=== PATIENT | female | born 1945 | race Two or more races ===

== ENCOUNTER 2018-08-02 07:02 | Day surgery (SDC) | payer OTHER, BC ==
[2018-08-02 09:12] VITALS: TEMP 98.5
[2018-08-02 11:54] VITALS: BP 112/64; PULSE 66
== END 2018-08-02 10:05 | disposition home or self-care (01) ==
LOC: JASU-ENDO 07:02
PROVIDERS: ATTEND Internal Medicine Gastroenterology
PROC: 0DJD8ZZ Inspection of Lower Intestinal Tract, Via Natural or Artificial Opening Endoscopic (ICD-10-PCS; principal; 2018-08-02 09:00)
DX: Z86.010 Personal history of colon polyps (principal); I10 Essential (primary) hypertension; E11.9 Type 2 diabetes mellitus without complications; E78.5 Hyperlipidemia, unspecified; E30.9 Disorder of puberty, unspecified; Z79.4 Long term (current) use of insulin
CPT/HCPCS: 82962

== ENCOUNTER 2018-11-02 08:17 | Emergency (ER) | payer OTHER, BC ==
[2018-11-02 08:22] VITALS: BP 145/83; PULSE 86; TEMP 97.7; BMI 37.8
--- NOTE | 2018-11-02 08:23 | PDOC ---
History of Present Illness - General Chief Complaint: Pain, Acute Stated Complaint: NECK PAIN Time Seen by Provider: 11/02/18 08:22 - History of Present Illness Initial Comments: 11/02/18 08:43 Chief complaint: Neck pain History of present illness: Patient awoke with left posterior and lateral neck pain and spasm 2 days ago, progressively worse. Aggravated by movement. No injury. Review of systems: Denies pain or weakness in the upper extremities, denies numbness or tingling in the arms or hands. Denies visual or focal neurologic symptoms except for radicular symptoms in the right leg, thought to be due to herniated disc. She is under the care of Dr. Santacruz for this condition. Denies chest pain, shortness of breath, abdominal pain, nausea, vomiting, diarrhea, hematemesis, melena, bloody stool, urinary tract symptoms, vaginal bleeding or discharge. Past medical history: Insulin-dependent diabetes, high blood pressure, hypothyroidism, dyspepsia, elevated cholesterol and triglycerides. On multiple medications as noted. Social history: No tobacco alcohol or nonprescription drugs. Stable home and family. Active without significant disability. She does exert herself periodically taking care of her grandchildren Family history: Reviewed and significant for diabetes, but no early coronary artery disease. Physical exam: Alert and oriented moderately obese moderate distress due to neck pain, primarily left-sided, and worse with rotation of the neck Afebrile, vital signs normal Head atraumatic. PERRLA, fundi benign, ENT clear There is considerable spasm of the sternomastoid muscle on the left, with a tilt of the head to the right. There is pain with rotation, and less so with flexion and extension. There is no point tenderness or deformity of the vertebral bodies of the cervical spine. There is no sign of inflammation. Neurological C2 to 12 intact. Strength full and symmetric. No focal sensory or motor deficits are demonstrable upper or lower extremities. Although the patient does describe intermittent radicular symptoms in the right leg as noted above. There is some aggravation of the neck pain with full abduction of the left arm. Chest clear. No rib cage or chest wall deformity or tenderness CV S1 and S2 regular without murmur rub or gallop pulses full and symmetric no JVD or edema no bruits Abdomen benign Gait stable and unimpaired. Extremities: No posterior calf swelling or tenderness. Homans negative. No CCE Impression: Torticollis, right neck, no sign of cervical radiculopathy Plan: Symptomatic treatment, ER observation, further evaluation depending on response to treatment. Past History - Past Medical History Allergies/Adverse Reactions: Allergies Allergy/AdvReac Type Severity Reaction Status Date / Time Penicillins Allergy Mild Hives Verified 11/02/18 08:23 fish derived Allergy Hives Verified 11/02/18 08:23 Home Medications: Ambulatory Orders Aspirin [ASA -] 81 mg PO DAILY #0 tab.chew 08/27/12 Atorvastatin Ca [Lipitor] 40 mg PO HS #0 tablet 08/27/12 Levothyroxine [Synthroid -] 25 mcg PO DAILY@0700 #0 tablet 08/27/12 Potassium Chloride [Klor-Con] 20 meq PO DAILY #0 packet 08/27/12 Valsartan/Hydrochlorothiazide [Diovan Hct 160-25 mg Tablet] 1 combo PO DAILY #0 tablet 08/27/12 metFORMIN HCL [Glucophage -] 500 mg PO BIDAC #0 tablet 08/27/12 Bone Meal/Ergocalciferol (D2) [Bone Meal-Vitamin D Tablet] 1 tab PO DAILY Dapagliflozin Propanediol [Farxiga] 10 mg PO DAILY 08/02/18 Exenatide Microspheres [Bydureon] 2 mg SQ Q7D 08/02/18 Fenofibrate 145 mg PO DAILY 08/02/18 Insulin Aspart [Novolog] 100 unit SQ DAILY 08/02/18 Metoprolol Succinate [Toprol XL -] 200 mg PO DAILY 08/02/18 Nifedipine [Nifedipine ER] 90 mg PO DAILY 08/02/18 Omeprazole Magnesium [Prilosec Otc] 20 mg PO DAILY 08/02/18 Pioglitazone HCl/Metformin HCl [Actoplus Met 15 mg-500 mg Tab] 15 mg PO DAILY Triamterene/Hydrochlorothiazid [Triamterene-Hctz 37.5-25 mg Cp] 25 mg PO DAILY 08/02/18 Cyclobenzaprine HCl [Flexeril] 10 mg PO TID PRN #10 tablet 11/02/18 COPD: No Diabetes: Yes HTN: Yes Hypercholesterolemia: Yes Kidney Stones: Yes Thyroid Disease: Yes - Surgical History Abdominal Surgery: Yes Cholecystectomy: Yes Neurologic Surgery: Yes (BACK DISC) Orthopedic Surgery: Yes (ARTHROSCOPY) - Suicide/Smoking/Psychosocial Hx Smoking Status: No Smoking History: Never smoked Number of Cigarettes Smoked Daily: 0 Hx Alcohol Use: No Drug/Substance Use Hx: No Substance Use Type: None Trauma Specific PMHX - Complaint Specific PMHX Arthritis: No Back Injury: Yes Neck Injury: No Hx Sacro Iliac Joint Dysfunction: No *Physical Exam - Vital Signs Last Vital Signs Temp Pulse Resp BP Pulse Ox 97.7 F 86 18 145/83 97 11/02/18 08:17 11/02/18 08:17 11/02/18 08:17 11/02/18 08:17 11/02/18 08:17 Moderate Sedation - Procedure Monitoring Vital Signs: Procedure Monitoring Vital Signs Temperature 97.7 F 11/02/18 08:17 Pulse Rate 86 11/02/18 08:17 Respiratory Rate 18 11/02/18 08:17 Blood Pressure 145/83 11/02/18 08:17 O2 Sat by Pulse Oximetry (%) 97 11/02/18 08:17 Medical Decision Making - Medical Decision Making 11/02/18 09:49 Pain and spasm are much improved. The cervical collar is reported as extremely helpful Continue muscle relaxant, rest, heat, and follow-up as necessary. Fully ambulatory at discharge with , much improved, to follow-up as directed *DC/Admit/Observation/Transfer Diagnosis at time of Disposition: Torticollis, acute - Discharge Dispostion Disposition: HOME Condition at time of disposition: Improved Decision to Admit order: No - Prescriptions Prescriptions: Cyclobenzaprine HCl [Flexeril] 10 mg PO TID PRN #10 tablet PRN Reason: pain/spasm neck - Referrals Referrals: Zoya Mccabe [Primary Care Provider] - 3 days - Patient Instructions Printed Discharge Instructions: DI for Torticollis Additional Instructions: Rest, heat, medication as directed. See primary physician for follow-up. Return to ER if symptoms worsen. - Post Discharge Activity
[2018-11-02] MEDS ORDERED: KETOROLAC TROMETHAMINE 60 MG/2 ML VIAL IM ONE (08:41)
[2018-11-02] MEDS ORDERED: LORazepam 1 MG TABLET PO ONE (08:41)
[2018-11-02] MEDS ORDERED: KETOROLAC TROMETHAMINE 60 MG/2 ML VIAL ONE (08:47)
[2018-11-02] MEDS ORDERED: LORazepam 0.5 MG TABLET ONE (08:49)
== END 2018-11-02 09:55 | disposition home or self-care (01) ==
LOC: FER 08:17
PROC: 3E0233Z Introduction of Anti-inflammatory into Muscle, Percutaneous Approach (ICD-10-PCS; principal; 2018-11-02)
DX: M43.6 Torticollis (principal); E11.9 Type 2 diabetes mellitus without complications; I10 Essential (primary) hypertension; E78.00 Pure hypercholesterolemia, unspecified; Z87.442 Personal history of urinary calculi; E03.9 Hypothyroidism, unspecified
CPT/HCPCS: 99282-25

== ENCOUNTER 2019-01-18 11:22 | Emergency (ER) | payer OTHER, BC ==
--- NOTE | 2019-01-18 11:38 | PDOC ---
History of Present Illness - General Chief Complaint: Pain, Acute Stated Complaint: NECK PAIN - History of Present Illness Initial Comments: 01/18/19 15:55 Chief complaint: Left neck spasm, swelling and redness left elbow History of present illness: Patient awoke this morning with pain and spasm of the muscles of the left side of the neck. She has had similar episodes in the past, which were uncomplicated right neck type spasms. She is also noted recent swelling pain and redness in her left elbow Review of systems: No injury or fall. No visual or focal neurologic symptoms or unsteadiness of gait. No trauma to the left elbow other than "resting her elbow on the table frequently".. She admits having thickened skin over the elbow for as long as she can remember. No fever/chills, chest pain, shortness of breath, abdominal pain, nausea, vomiting, diarrhea. Remainder systems reviewed and found to be negative Past medical history: History of "wry neck" as noted above. Insulin-dependent diabetes. High blood pressure. Elevated cholesterol. On medications as noted lumbar Social/family history reviewed and noncontributory Physical exam: Alert and oriented well-developed well-nourished no acute distress cheerful and cooperative Afebrile, vital signs stable Head atraumatic. PERRLA, fundi benign, ENT clear Neck exam reveals no point tenderness over the vertebral bodies. There is tenderness and spasm of the left sternomastoid muscle with tilting of the head to the right side. No bruits masses or nodes Chest clear. No rib cage or chest wall deformity or tenderness CV regular without murmur rub or gallop Abdomen benign Neurological C2 to 12 intact. No focal sensory or motor deficits. Gait stable and unimpaired Extremities: There is erythema, warmth, and mild tenderness over the olecranon involving the upper arm and forearm, surrounding the olecranon process. There is no deformity or limited range of motion. There is a 1 cm patch of hypertrophic, scaly epidermis over the olecranon process. No lymphangitic streaking and no tender axillary nodes Impression: Olecranon bursitis, septic, without appreciable effusion, but with early cellulitis of the surrounding tissues area probably with port of entry being a psoriatic type plaque over the elbow. Wry neck/torticollis as in the past. Plan: A soft cervical collar was applied. Patient was given a Toradol injection with considerable relief, and prescribed muscle relaxants. Her arm was placed in a sling and warm compresses were recommended. Antibiotics were prescribed. She tolerated cephalexin in the emergency room without any sign of reaction, although she is ALLERGIC to penicillin. She is instructed to follow-up in 24 hours to check response to therapy. Fully ambulatory and in no pain or other distress upon discharge with to follow-up as directed Past History - Past Medical History Allergies/Adverse Reactions: Allergies Allergy/AdvReac Type Severity Reaction Status Date / Time Penicillins Allergy Mild Hives Verified 01/18/19 11:36 fish derived Allergy Hives Verified 01/18/19 11:36 Home Medications: Ambulatory Orders Aspirin [ASA -] 81 mg PO DAILY #0 tab.chew 08/27/12 Atorvastatin Ca [Lipitor] 40 mg PO HS #0 tablet 08/27/12 Levothyroxine [Synthroid -] 25 mcg PO DAILY@0700 #0 tablet 08/27/12 Potassium Chloride [Klor-Con] 20 meq PO DAILY #0 packet 08/27/12 Valsartan/Hydrochlorothiazide [Diovan Hct 160-25 mg Tablet] 1 combo PO DAILY #0 tablet 08/27/12 metFORMIN HCL [Glucophage -] 500 mg PO BIDAC #0 tablet 08/27/12 Bone Meal/Ergocalciferol (D2) [Bone Meal-Vitamin D Tablet] 1 tab PO DAILY Dapagliflozin Propanediol [Farxiga] 10 mg PO DAILY 08/02/18 Exenatide Microspheres [Bydureon] 2 mg SQ Q7D 08/02/18 Fenofibrate 145 mg PO DAILY 08/02/18 Insulin Aspart [Novolog] 100 unit SQ DAILY 08/02/18 Metoprolol Succinate [Toprol XL -] 200 mg PO DAILY 08/02/18 Nifedipine [Nifedipine ER] 90 mg PO DAILY 08/02/18 Omeprazole Magnesium [Prilosec Otc] 20 mg PO DAILY 08/02/18 Pioglitazone HCl/Metformin HCl [Actoplus Met 15 mg-500 mg Tab] 15 mg PO DAILY Triamterene/Hydrochlorothiazid [Triamterene-Hctz 37.5-25 mg Cp] 25 mg PO DAILY 08/02/18 Cyclobenzaprine HCl [Flexeril -] 10 mg PO TID PRN #10 tablet 11/02/18 Cephalexin Monohydrate [Keflex] 500 mg PO Q6H #30 capsule 01/18/19 Cyclobenzaprine HCl [Flexeril] 10 mg PO TID #14 tablet 01/18/19 COPD: No Diabetes: Yes HTN: Yes Hypercholesterolemia: Yes Kidney Stones: Yes Thyroid Disease: Yes - Surgical History Abdominal Surgery: Yes Cholecystectomy: Yes Neurologic Surgery: Yes (BACK DISC) Orthopedic Surgery: Yes (ARTHROSCOPY) - Suicide/Smoking/Psychosocial Hx Smoking Status: No Smoking History: Never smoked Number of Cigarettes Smoked Daily: 0 Hx Alcohol Use: No Drug/Substance Use Hx: No Substance Use Type: None Trauma Specific PMHX - Complaint Specific PMHX Arthritis: No Back Injury: Yes Neck Injury: No Hx Sacro Iliac Joint Dysfunction: No *DC/Admit/Observation/Transfer Diagnosis at time of Disposition: Torticollis, acute, Olecranon bursitis of left elbow - Discharge Dispostion Disposition: HOME Condition at time of disposition: Stable Decision to Admit order: No - Prescriptions Prescriptions: Cephalexin Monohydrate [Keflex] 500 mg PO Q6H #30 capsule Cyclobenzaprine HCl [Flexeril] 10 mg PO TID #14 tablet - Referrals - Patient Instructions Printed Discharge Instructions: DI for Cellulitis -- Adult, DI for Torticollis Additional Instructions: Rest, warm compresses to neck and elbow, antibiotics as directed. Recheck 24 hours if redness and swelling of the elbow is worse. - Post Discharge Activity
[2019-01-18 11:53] VITALS: BP 133/64; PULSE 74; TEMP 97.3; BMI 38.4
[2019-01-18] MEDS ORDERED: CYCLOBENZAPRINE HCL 10 MG TABLET (FP) PO ONE (12:08)
[2019-01-18] MEDS ORDERED: KETOROLAC TROMETHAMINE 60 MG/2 ML VIAL IM ONE (12:08)
[2019-01-18] MEDS ORDERED: CEPHALEXIN MONOHYDRATE 500 MG CAPSULE (UD) PO ONE (12:09)
[2019-01-18] MEDS ORDERED: KETOROLAC TROMETHAMINE 60 MG/2 ML VIAL ONE (12:11)
[2019-01-18] MEDS ORDERED: CYCLOBENZAPRINE HCL 10 MG TABLET (FP) ONE (12:12)
[2019-01-18] MEDS ORDERED: CEPHALEXIN MONOHYDRATE 500 MG CAPSULE (UD) ONE (12:12)
== END 2019-01-18 13:06 | disposition home or self-care (01) ==
LOC: FER 11:22
PROC: 3E0233Z Introduction of Anti-inflammatory into Muscle, Percutaneous Approach (ICD-10-PCS; principal; 2019-01-18)
DX: M43.6 Torticollis (principal); M70.22 Olecranon bursitis, left elbow; I10 Essential (primary) hypertension; E11.9 Type 2 diabetes mellitus without complications; E78.00 Pure hypercholesterolemia, unspecified; E07.9 Disorder of thyroid, unspecified
CPT/HCPCS: 99282-25

== ENCOUNTER → 2019-06-08 | Day surgery (SDC) | payer OTHER, BC ==
[2019-06-06 15:42] VITALS: BMI 40.5
[~2019-06-08] MED LIST: BUPIVACAINE HCL/PF (5 MG/ML) 30 ML VIAL IJ ONE; CEFAZOLIN 2 GM in DEXTROSE 5%-WATER - 50 ML IVPB ONE; CELECOXIB 200 MG CAPSULE ONE; CELECOXIB 200 MG CAPSULE PO ONE; EPINEPHrine/PF 1 MG/1 ML (1:1,000) AMPULE ONE; GABAPENTIN 300 MG CAPSULE (FP) ONE; GABAPENTIN 300 MG CAPSULE (FP) PO ONE; INSULIN (NOVOLOG) ASPART 100 UNITS/ML 10ML VIAL ONE; INSULIN REGULAR HUMAN 100 UNITS/ML *VIAL SQ ONE; MIDAZOLAM HCL 2 MG/2 ML SINGLE DOSE VIAL ONE; PANTOPRAZOLE 40 MG TABLET (FP) ONE; PANTOPRAZOLE 40 MG TABLET (FP) PO ONE; ROPIVICAINE 0.2%/MORPH PF/KETOROLAC - 51ML DISP.SYRINGE IA ONE; TRANEXAMIC ACID 1000 MG/10 ML VIAL IVPUSH ONE; TRANEXAMIC ACID 1000 MG/10 ML VIAL ONE; VANCOMYCIN 1,000 MG VIAL (RESTRICTED TO ID ONLY) ONE; ceFAZolin SODIUM 1 GM VIAL ONE; oxyCODONE HCL 10 MG SUSTAINED ACTING TABLET ONE; oxyCODONE HCL 10 MG SUSTAINED ACTING TABLET PO ONE
[2019-06-08 07:29] VITALS: BP 136/80; PULSE 72; TEMP 98.2
--- NOTE | 2019-06-08 07:46 | HP ---
Admitting History and Physical - Admission Chief Complaint: left hip osteoarthrtitis x years History of Present Illness: 73 year old female presents in regard to their left hip. Longstanding history of left hip osteoarthritis. Patient complains of pain, limited ROM, difficulty ambulating and difficulty completing ADLs. Patient has failed conservative treatment measures including PO medications, injections, exercise programs and activity modification. At this point, patient wishes to proceed with surgical intervention, a left total hip arthroplasty - MAKOplasty. History Source: Patient - Past Medical History Cardiovascular: Yes: HTN ...: No Endocrine: Yes: Diabetes Mellitus - Past Surgical History Additional Past Surgical History: See history & physical. - Smoking History Smoking history: Former smoker Have you smoked in the past 12 months: No Aproximately how many cigarettes per day: 0 If you are a former smoker, when did you quit?: 30 y ago - Alcohol/Substance Use Hx Alcohol Use: No Home Medications - Allergies Allergies/Adverse Reactions: Allergies Allergy/AdvReac Type Severity Reaction Status Date / Time Penicillins Allergy Mild Hives Verified 06/08/19 07:03 fish derived Allergy Hives Verified 06/08/19 07:03 - Home Medications Home Medications: Ambulatory Orders Aspirin [ASA -] 81 mg PO DAILY #0 tab.chew 08/27/12 Atorvastatin Ca [Lipitor] 40 mg PO HS #0 tablet 08/27/12 Levothyroxine [Synthroid -] 25 mcg PO DAILY@0700 #0 tablet 08/27/12 Bone Meal/Ergocalciferol (D2) [Bone Meal-Vitamin D Tablet] 1 tab PO DAILY Exenatide Microspheres [Bydureon] 2 mg SQ Q7D 08/02/18 Fenofibrate 145 mg PO DAILY 08/02/18 Insulin Aspart [Novolog] 120 unit SQ DAILY 08/02/18 Metoprolol Succinate [Toprol XL -] 150 mg PO DAILY 08/02/18 Nifedipine [Nifedipine ER] 90 mg PO DAILY 08/02/18 Triamterene/Hydrochlorothiazid [Triamterene-Hctz 37.5-25 mg Cp] 25 mg PO DAILY 08/02/18 Carvedilol 12.5 mg PO BID 06/06/19 Dapagliflozin Propanediol [Farxiga] 20 mg PO DAILY 06/06/19 Metformin HCl [Glucophage] 1,000 mg PO HS 06/06/19 Pioglitazone HCl 15 mg PO DAILY 06/06/19 Potassium Chloride [Klor-Con M20] 20 meq PO DAILY 06/06/19 Pregabalin [Lyrica -] 50 mg PO BID 06/06/19 Valsartan/Hydrochlorothiazide [Valsartan-Hctz 320-25 mg Tab] 1 each PO DAILY 08/17 metFORMIN HCL [Glucophage -] 500 mg PO AM 06/06/19 Review of Systems - Review of Systems Musculoskeletal: reports: Decreased ROM (left hip), Joint Pain (left hip) Physical Examination Vital Signs: Vital Signs Temperature 98.2 F 06/08/19 07:13 Pulse Rate 72 06/08/19 07:13 Respiratory Rate 16 06/08/19 07:13 Blood Pressure 136/80 06/08/19 07:13 O2 Sat by Pulse Oximetry (%) Constitutional: Yes: Well Nourished, No Distress Eyes: Yes: Conjunctiva Clear HENT: Yes: Atraumatic Neck: Yes: Supple Cardiovascular: Yes: Regular Rate and Rhythm Respiratory: Yes: Regular Gastrointestinal: Yes: Soft ...Rectal Exam: Yes: Deferred Musculoskeletal: Yes: Joint Stiffness (left hip) Assessment/Plan 73 year old female presents in regard to their left hip. Longstanding history of left hip osteoarthritis. Patient complains of pain, limited ROM, difficulty ambulating and difficulty completing ADLs. Patient has failed conservative treatment measures including PO medications, injections, exercise programs and activity modification. At this point, patient wishes to proceed with surgical intervention, a left total hip arthroplasty - MAKOplasty. Pros, cons, risks benefits and alternatives of a left total hip arthroplasty, MAKOplasty were discussed with the patient at length. Patient confirms their understanding and consents to proceed with a left total hip arthroplasty, MAKOplasty.
== END | disposition home or self-care (01) ==
LOC: FM/S 05:55 → UNDOADMIN 05:55 → FASUSAT 05:55 → EDSTATUS 11:30
PROVIDERS: ATTEND Student in an Organized Health Care Education/Training Program
PROC: 0SRB0JZ Replacement of Left Hip Joint with Synthetic Substitute, Open Approach (ICD-10-PCS; principal; 2019-06-08)
DX: M16.12 Unilateral primary osteoarthritis, left hip (principal); Z53.09 Procedure and treatment not carried out because of other contraindication
CPT/HCPCS: 82962; 83036

== ENCOUNTER 2021-07-21 14:39 | Observation (INO) | payer OTHER, BC ==
[2021-07-21] MEDS ORDERED: ASPIRIN 325 MG TABLET PO ONE (15:14)
[2021-07-21] MEDS ORDERED: ASPIRIN 81 MG CHEWABLE TABLETS ONE (15:20)
[2021-07-21 15:52] LABS: BASO % 0.8 % (0-2.0); EOS % 2.4 % (0-4.5); HEMATOCRIT 41.7 % (32.4-45.2); HEMOGLOBIN 14.4 GM/dl (10.7-15.3); LYMPH % 20.2 % (8-40); MCH 31.1 pg (25.7-33.7); MCHC 34.5 g/dl (32.0-36.0); MEAN CELL VOLUME 90.1 fl (80-96); MONO % 4.6 % (3.8-10.2); PLATELET COUNT 272 10^3/uL (134-434); RBC 4.63 M/mm3 (3.60-5.2); RDW 12.9 % (11.6-15.6); WHITE BLOOD COUNT 7.7 K/mm3 (4.0-10.8)
[2021-07-21 15:59] LABS: ACTIVATED PTT 25.9 SECONDS (25.2-36.5)
[2021-07-21 16:01] LABS: ALBUMIN 3.7 g/dl (3.4-5.0); ALK PHOS 124 U/L (45-117); ANION GAP 10 MMOL/L (8-16); CALCIUM 9.3 mg/dl (8.5-10); CHLORIDE 96 mmol/L (98-107); CO2 28 mmol/L (21-32); CREATININE 0.8 mg/dl (0.55-1.3); GLUCOSE,RANDOM 414 mg/dl (74-106); SGOT/AST 57 U/L (15-37); SGPT/ALT 26 U/L (13-61); SODIUM 134 mmol/L (136-145); TOT PROT 7.1 g/dl (6.4-8.2)
[2021-07-21 16:03] LABS: INR 0.89 (0.82-1.09)
[2021-07-21] MEDS ORDERED: SODIUM CHLORIDE 1,000 ML IV STA (16:06)
[2021-07-21] MEDS ORDERED: INSULIN REGULAR HUMAN 100 UNITS/ML *VIAL IVPUSH ONE (18:11)
[2021-07-21] MEDS ORDERED: INSULIN (NOVOLOG) ASPART 100 UNITS/ML 10ML VIAL ONE (18:22)
[2021-07-21] MEDS: INSULIN SLIDING SCALE (NOVOLOG) 1 VIAL SQ SCH (18:25)
[2021-07-21] MEDS: ASPIRIN 81 MG CHEWABLE TABLETS PO SCH (18:28)
[2021-07-21 19:20] LABS: EPITHELIAL CELLS FEW /hpf
[2021-07-21] MEDS ORDERED: PATIENT'S OWN MEDICATION (NON-FORMULARY) (Insulin Aspart [Novolog] 100 UNIT/ML Cartridge) SQ SCH (20:30)
[2021-07-21] MEDS ORDERED: PATIENT'S OWN MEDICATION (NON-FORMULARY) (Semaglutide [Ozempic] 1 MG/0.75 ML Pen.Injctr) SQ SCH (20:30)
[2021-07-21] MEDS: TICAGRELOR 90 MG TABLET PO SCH (21:23)
[2021-07-21] MEDS: INSULIN (LEVEMIR) 100 UNITS/ML UNITS SQ SCH (21:26)
[2021-07-21] MEDS ORDERED: CARVEDILOL 12.5 MG TABLET (FP) PO SCH (22:00)
[2021-07-21] MEDS ORDERED: ATORVASTATIN CA 80 MG TABLET (FP) PO SCH (22:00)
[2021-07-21] MEDS ORDERED: ATORVASTATIN CA 40 MG TABLET (FP) PO SCH (22:00)
[2021-07-21 22:32] VITALS: BMI 33.3
[2021-07-22] MEDS: INSULIN SLIDING SCALE (NOVOLOG) 1 VIAL SQ SCH ×4 (06:59→16:48)
[2021-07-22] MEDS ORDERED: LEVOTHYROXINE NA 25 MCG TABLET (FP) PO SCH (07:00)
[2021-07-22] MEDS: INSULIN (LEVEMIR) 100 UNITS/ML UNITS SQ SCH (07:00)
[2021-07-22] MEDS ORDERED: PIOGLITAZONE HCL 15 MG TABLET PO SCH (07:00)
[2021-07-22] MEDS: SACUBITRIL/VALSARTAN 49 MG-51 MG TABLET PO SCH ×2 (07:54→12:20)
[2021-07-22 08:31] LABS: CALCIUM 8.9 mg/dl (8.5-10); CREATININE 0.8 mg/dl (0.55-1.3)
[2021-07-22] MEDS: ASPIRIN 81 MG CHEWABLE TABLETS PO SCH (09:27)
[2021-07-22] MEDS: TICAGRELOR 90 MG TABLET PO SCH (09:29)
[2021-07-22] MEDS ORDERED: CHOLECALCIFEROL (VIT D3) 1,000 UNIT (25 MCG) TABLET PO SCH (10:00)
[2021-07-22] MEDS ORDERED: POTASSIUM CHLORIDE TABS 20 MEQ TABLET.ER (FP) PO SCH (10:00)
[2021-07-22] MEDS ORDERED: FENOFIBRIC ACID 135 MG CAP PO SCH (10:00)
[2021-07-22] MEDS ORDERED: TRIAMTERENE AND HCTZ - 37.5 MG/25 MG CAPSULE PO SCH (10:00)
[2021-07-22] MEDS ORDERED: SPIRONOLACTONE 25 MG TABLET PO SCH (10:00)
[2021-07-22] MEDS ORDERED: NIFEdipine E.R. 90 MG TABLET PO SCH (10:00)
[2021-07-22 11:58] VITALS: PULSE 57
[2021-07-22 14:08] VITALS: BP 113/58; TEMP 97.7
[2021-07-25] MEDS ORDERED: ERGOCALCIFEROL (VIT D2) 50,000 UNIT (1.25 MG) CAPSULE PO SCH (10:00)
== END 2021-07-22 17:56 | disposition home or self-care (01) ==
LOC: FER 14:39 → FM/S 16:38
PROVIDERS: ADMIT Internal Medicine; ATTEND Internal Medicine
PROC: 3E013VG Introduction of Insulin into Subcutaneous Tissue, Percutaneous Approach (ICD-10-PCS; principal; 2021-07-21)
PROC: 3E0337Z Introduction of Electrolytic and Water Balance Substance into Peripheral Vein, Percutaneous Approach (ICD-10-PCS; 2021-07-21)
DX: I25.10 Atherosclerotic heart disease of native coronary artery without angina pectoris (principal); E66.9 Obesity, unspecified; Z68.33 Body mass index [BMI] 33.0-33.9, adult; Z95.5 Presence of coronary angioplasty implant and graft; I10 Essential (primary) hypertension; E11.9 Type 2 diabetes mellitus without complications; Z79.4 Long term (current) use of insulin; E78.00 Pure hypercholesterolemia, unspecified; Z87.891 Personal history of nicotine dependence; R07.9 Chest pain, unspecified; Z88.0 Allergy status to penicillin; Z91.013 Allergy to seafood
CPT/HCPCS: 36415; 71045-TC-FY; 80048; 80053; 81003; 81015; 82550; 82962; 84443; 84484; 85025; 85610; 85730; 93005; 96361; 96372; 99285-25; C9803; G0378; U0003; U0005

== ENCOUNTER 2022-06-12 00:54 | Inpatient (IN) | payer OTHER, BC ==
[2022-06-12] MEDS ORDERED: FUROSEMIDE 40 MG/4 ML INJECTABLE VIAL IVPUSH ONE (01:45)
[2022-06-12] MEDS ORDERED: FUROSEMIDE 40 MG/4 ML INJECTABLE VIAL ONE (01:46)
[2022-06-12 01:59] LABS: BASO % 0.8 % (0-2.0); EOS % 3.9 % (0-4.5); HEMATOCRIT 46.1 % (32.4-45.2); HEMOGLOBIN 14.8 GM/dL (10.7-15.3); LYMPH % 29.7 % (8-40); MCHC 32.1 g/dl (32.0-36.0); MEAN CELL VOLUME 93.5 fl (80-96); MEAN PLT VOLUME 8.5 fl (7.5-11.1); MONO % 6.2 % (3.8-10.2); NEUT % 59.4 % (42.8-82.8); PLATELET COUNT 322 10^3/uL (134-434); RBC 4.93 M/mm3 (3.60-5.2); WHITE BLOOD COUNT 8.8 K/mm3 (4.0-10.0)
[2022-06-12 02:17] LABS: CHLORIDE 104 mmol/L (98-107); SODIUM 141 mmol/L (136-145)
[2022-06-12 02:19] LABS: CALCIUM 8.8 mg/dL (8.5-10.1)
[2022-06-12 02:20] LABS: ALBUMIN 3.7 g/dl (3.4-5.0); ANION GAP 9 MMOL/L (8-16); BLOOD UREA NITROGEN 10.5 mg/dL (7-18); CO2 28 mmol/L (21-32)
[2022-06-12 02:23] LABS: CREATININE 0.9 mg/dL (0.55-1.3); SGOT/AST 68 U/L (15-37); SGPT/ALT 53 U/L (13-61)
[2022-06-12 02:24] LABS: TOT PROT 7.8 g/dl (6.4-8.2)
[2022-06-12 02:25] LABS: BILIRUBIN,TOTAL 0.6 mg/dL (0.2-1)
[2022-06-12 02:26] LABS: ALK PHOS 147 U/L (45-117)
[2022-06-12 02:27] LABS: N-TERMINAL BNP 2122.9 pg/ml (5-125)
[2022-06-12 02:47] LABS: GLUCOSE,RANDOM 417 mg/dL (74-106)
[2022-06-12] MEDS ORDERED: ACETAMINOPHEN 325 MG TABLET (FP) PO PRN (03:58)
[2022-06-12] MEDS ORDERED: POLYETHYLENE GLYCOL (HEALTHYLAX) 3350 17 GM PACKET PO PRN (03:58)
[2022-06-12] MEDS ORDERED: INSULIN REGULAR HUMAN 100 UNITS/ML *VIAL SQ ONE (04:04)
[2022-06-12] MEDS ORDERED: INSULIN REGULAR HUMAN 100 UNITS/ML *VIAL ONE (04:23)
[2022-06-12 05:47] LABS: INR 0.97 (0.83-1.09); PROTHROMBIN TIME (PATIENT) 11.2 SEC (9.7-13.0)
[2022-06-12 05:50] LABS: ACTIVATED PTT 30.4 SECONDS (25.2-36.5)
[2022-06-12 05:59] LABS: PH,URINE 5.5 (5.0-8.0); URINE APPEARANCE CLEAR; URINE BILIRUBIN NEGATIVE (NEGATIVE); URINE COLOR YELLOW; URINE GLUCOSE (UA) 3+ (NEGATIVE); URINE KETONE NEGATIVE (NEGATIVE); URINE LEUK ESTERASE NEGATIVE (NEGATIVE); URINE NITRITE NEGATIVE (NEGATIVE); URINE PROTEIN NEGATIVE (NEGATIVE); URINE UROBILINOGEN 0.2 mg/dL (0.2-1.0)
[2022-06-12 06:19] VITALS: BMI 31.4
[2022-06-12] MEDS: INSULIN SLIDING SCALE (NOVOLOG) 1 VIAL SQ SCH ×4 (06:42→21:39)
[2022-06-12 08:21] LABS: CALCIUM 8.5 mg/dl (8.5-10); CREATININE 0.8 mg/dl (0.55-1.3)
[2022-06-12] MEDS: INSULIN (LEVEMIR) 100 UNITS/ML UNITS SQ SCH ×2 (08:27→16:31)
[2022-06-12] MEDS ORDERED: POTASSIUM CHLORIDE TABS 10 MEQ TABLET.ER (FP) PO ONE (09:30)
[2022-06-12] MEDS: ENOXAPARIN NA (PORCINE) 40 MG/0.4 ML DISP.SYRIN SQ SCH (09:51)
[2022-06-12] MEDS: SACUBITRIL/VALSARTAN 49 MG-51 MG TABLET PO SCH ×2 (09:51→21:39)
[2022-06-12] MEDS: SPIRONOLACTONE 25 MG TABLET PO SCH (09:51)
[2022-06-12] MEDS: ASPIRIN 81 MG CHEWABLE TABLETS PO SCH (09:51)
[2022-06-12] MEDS: ATORVASTATIN CA 80 MG TABLET (FP) PO SCH (21:39)
[2022-06-12] MEDS: TICAGRELOR 60 MG TABLET PO SCH (23:21)
[2022-06-13] MEDS: INSULIN (LEVEMIR) 100 UNITS/ML UNITS SQ SCH ×2 (06:30→17:03)
[2022-06-13] MEDS: LEVOTHYROXINE NA 50 MCG TABLET (FP) PO SCH (06:31)
[2022-06-13] MEDS: INSULIN SLIDING SCALE (NOVOLOG) 1 VIAL SQ SCH ×4 (06:33→21:41)
[2022-06-13 09:51] LABS: CREATININE 0.7 mg/dl (0.55-1.3); MAGNESIUM 1.8 mg/dL (1.8-2.4)
[2022-06-13] MEDS: SPIRONOLACTONE 25 MG TABLET PO SCH (09:59)
[2022-06-13] MEDS: ASPIRIN 81 MG CHEWABLE TABLETS PO SCH (09:59)
[2022-06-13] MEDS: SACUBITRIL/VALSARTAN 49 MG-51 MG TABLET PO SCH ×2 (09:59→21:37)
[2022-06-13] MEDS: FUROSEMIDE 40 MG TABLET (FP) PO SCH (09:59)
[2022-06-13] MEDS: TICAGRELOR 60 MG TABLET PO SCH ×2 (09:59→21:37)
[2022-06-13] MEDS: ENOXAPARIN NA (PORCINE) 40 MG/0.4 ML DISP.SYRIN SQ SCH (10:00)
[2022-06-13 12:03] LABS: BASO % 1.2 % (0-2.0); EOS % 3.9 % (0-4.5); HEMATOCRIT 45.7 % (32.4-45.2); HEMOGLOBIN 15.1 GM/dL (10.7-15.3); LYMPH % 24.1 % (8-40); MCH 30.4 pg (25.7-33.7); MEAN CELL VOLUME 92.1 fl (80-96); MEAN PLT VOLUME 8.6 fl (7.5-11.1); MONO % 6.3 % (3.8-10.2); NEUT % 64.5 % (42.8-82.8); PLATELET COUNT 305 10^3/uL (134-434); RBC 4.97 M/mm3 (3.60-5.2); RDW 13.7 % (11.6-15.6); WHITE BLOOD COUNT 6.5 K/mm3 (4.0-10.0)
[2022-06-13] MEDS: ATORVASTATIN CA 80 MG TABLET (FP) PO SCH (21:37)
[2022-06-14] MEDS: INSULIN (LEVEMIR) 100 UNITS/ML UNITS SQ SCH (06:08)
[2022-06-14] MEDS: LEVOTHYROXINE NA 50 MCG TABLET (FP) PO SCH (06:08)
[2022-06-14] MEDS: INSULIN SLIDING SCALE (NOVOLOG) 1 VIAL SQ SCH ×2 (06:10→11:10)
[2022-06-14 10:29] VITALS: BP 123/60; PULSE 70; TEMP 97.8
[2022-06-14] MEDS: SACUBITRIL/VALSARTAN 49 MG-51 MG TABLET PO SCH (10:31)
[2022-06-14] MEDS: ASPIRIN 81 MG CHEWABLE TABLETS PO SCH (10:31)
[2022-06-14] MEDS: ENOXAPARIN NA (PORCINE) 40 MG/0.4 ML DISP.SYRIN SQ SCH (10:32)
[2022-06-14] MEDS: FUROSEMIDE 40 MG TABLET (FP) PO SCH (10:32)
[2022-06-14] MEDS: SPIRONOLACTONE 25 MG TABLET PO SCH (10:32)
[2022-06-14] MEDS: TICAGRELOR 60 MG TABLET PO SCH (12:48)
== END 2022-06-14 14:18 | disposition home or self-care (01) | DRG 291 ==
LOC: FER 00:54 → FM/S 04:14
PROVIDERS: ADMIT Internal Medicine; ATTEND Nurse Practitioner Family
DX: I13.0 Hypertensive heart and chronic kidney disease with heart failure and stage 1 through stage 4 chronic kidney disease, or unspecified chronic kidney disease (principal); I50.23 Acute on chronic systolic (congestive) heart failure; E11.65 Type 2 diabetes mellitus with hyperglycemia; N18.9 Chronic kidney disease, unspecified; E78.5 Hyperlipidemia, unspecified; I25.10 Atherosclerotic heart disease of native coronary artery without angina pectoris; Z98.61 Coronary angioplasty status; E03.9 Hypothyroidism, unspecified; I16.0 Hypertensive urgency; F32.A Depression, unspecified; Z79.4 Long term (current) use of insulin; I42.0 Dilated cardiomyopathy; I25.5 Ischemic cardiomyopathy
CPT/HCPCS: 36415; 71045-TC-FY; 80048; 80053; 80061; 81003; 82962; 83036; 83735; 83880; 84443; 84484; 85025; 85610; 85730; 93005; 93306-TC; 99285-25; C9803-CS; U0003; U0005

== ENCOUNTER 2023-07-26 08:31 | Day surgery (SDC) | payer OTHER, BC ==
[2023-07-20 11:52] VITALS: BMI 29.2
[~2023-07-26 08:31] MED LIST changes: -BUPIVACAINE HCL/PF (5 MG/ML) 30 ML VIAL IJ ONE; -CEFAZOLIN 2 GM in DEXTROSE 5%-WATER - 50 ML IVPB ONE; -CELECOXIB 200 MG CAPSULE ONE; -CELECOXIB 200 MG CAPSULE PO ONE; -EPINEPHrine/PF 1 MG/1 ML (1:1,000) AMPULE ONE; -GABAPENTIN 300 MG CAPSULE (FP) ONE; -GABAPENTIN 300 MG CAPSULE (FP) PO ONE; -INSULIN (NOVOLOG) ASPART 100 UNITS/ML 10ML VIAL ONE; -INSULIN REGULAR HUMAN 100 UNITS/ML *VIAL SQ ONE; +LACTATED RINGERS SOLUTION 1,000 ML IV SCH; -MIDAZOLAM HCL 2 MG/2 ML SINGLE DOSE VIAL ONE; -PANTOPRAZOLE 40 MG TABLET (FP) ONE; -PANTOPRAZOLE 40 MG TABLET (FP) PO ONE; -ROPIVICAINE 0.2%/MORPH PF/KETOROLAC - 51ML DISP.SYRINGE IA ONE; -TRANEXAMIC ACID 1000 MG/10 ML VIAL IVPUSH ONE; -TRANEXAMIC ACID 1000 MG/10 ML VIAL ONE; -VANCOMYCIN 1,000 MG VIAL (RESTRICTED TO ID ONLY) ONE; -ceFAZolin SODIUM 1 GM VIAL ONE; -oxyCODONE HCL 10 MG SUSTAINED ACTING TABLET ONE; -oxyCODONE HCL 10 MG SUSTAINED ACTING TABLET PO ONE
[2023-07-26] MEDS ORDERED: PHENYLEPHRINE 2.5% OPTHALMIC DROP 2ML BOTTLE ONE (08:52)
[2023-07-26] MEDS ORDERED: TROPICAMIDE 1% OPHTH SOLN 15 ML BOTTLE ONE (08:52)
[2023-07-26] MEDS ORDERED: OFLOXACIN 0.3% OPHTHALMIC SOLUTION 5 ML BOTTLE ONE (08:52)
[2023-07-26] MEDS ORDERED: CYCLOPENTOLATE HCL 1% OPHTH SOLN 2 ML BOTTLE ONE (08:52)
[2023-07-26] MEDS ORDERED: KETOROLAC TROMETHAMINE 0.5% EYE DROP 1 DROP DROPS ONE (08:52)
[2023-07-26] MEDS: PHENYLEPHRINE 2.5% OPHTH SOLN 15 ML BOTTLE OS SCH ×3 (09:15→09:25)
[2023-07-26] MEDS: KETOROLAC TROMETHAMINE 0.5% EYE DROP 1 DROP DROPS OS SCH ×3 (09:15→09:25)
[2023-07-26] MEDS: OFLOXACIN 0.3% OPHTHALMIC SOLUTION 5 ML BOTTLE OS SCH ×3 (09:15→09:25)
[2023-07-26] MEDS: CYCLOPENTOLATE HCL 1% OPHTH SOLN 2 ML BOTTLE OS SCH ×3 (09:15→09:25)
[2023-07-26] MEDS: TROPICAMIDE 1% OPHTH SOLN 15 ML BOTTLE OS SCH ×3 (09:15→09:25)
[2023-07-26 09:22] VITALS: RESP 16
[2023-07-26] MEDS ORDERED: NEO/POLYMYX B SULF/DEXAMETH OPHTHALMIC 5ML BOTTLE ONE (10:19)
[2023-07-26] MEDS ORDERED: BSS (NA/CA/MG/K) BALANCED SALT SOLUTION OPHTH SOLN 15 ML BOTTLE ONE (10:19)
[2023-07-26] MEDS ORDERED: EPI-SHUGARCAINE (EPINEPHRINE 0.025% & LIDOCAINE-PF 0.75%) 4ML ONE (10:19)
[2023-07-26] MEDS ORDERED: POVIDONE-IODINE 5% OPHTHALMIC PREP 30 ML SOLUTION ONE (10:19)
[2023-07-26] MEDS ORDERED: BETAXOLOL HCL 0.25% OPHTHALMIC 10 ML DROPSBTL ONE (10:19)
[2023-07-26] MEDS ORDERED: BACITRACIN/POLYMYXIN OPH OINT 3.5 GM TUBE ONE (10:19)
[2023-07-26] MEDS ORDERED: TETRACAINE 0.5% OPHTH SOLN 2 ML BOTTLE ONE (10:19)
[2023-07-26] MEDS ORDERED: MIDAZOLAM HCL 2 MG/2 ML SINGLE DOSE VIAL ONE (10:24)
[2023-07-26] MEDS ORDERED: ACETAMINOPHEN 325 MG TABLET (FP) PO PRN (10:55)
[2023-07-26 11:10] VITALS: TEMP 97.1
[2023-07-26 11:49] VITALS: BP 134/62; PULSE 66
== END 2023-07-26 11:40 | disposition home or self-care (01) ==
LOC: FASU 08:31
PROVIDERS: ATTEND Ophthalmology
PROC: 08RK3JZ Replacement of Left Lens with Synthetic Substitute, Percutaneous Approach (ICD-10-PCS; principal; 2023-07-26 10:30)
DX: H25.12 Age-related nuclear cataract, left eye (principal)
CPT/HCPCS: 66984; V2632; 82962